=== PATIENT | male | born 1985 | race American Indian/Alaskan Native ===

== ENCOUNTER 2016-11-27 07:00 | Emergency (ER) | payer SELFPAY ==
--- NOTE | 2016-11-27 07:23 | ED PDOC ---
HPI: Eye Injury/Pain Time Seen by Provider: 11/27/16 07:07 Chief Complaint (Provider): Eye pain History Per: Patient History/Exam Limitations: no limitations Onset/Duration Of Symptoms: Days (x2) Current Symptoms Are (Timing): Still Present Additional Complaint(s): Nemesio Horton is a 31 year old female presenting to the ED for an evaluation of bilateral periorbital swelling occurring for 2 days prior to arrival associated with itching and discharge. She denies fever, blurry vision, shortness of breath , or other rashes. PMD: Past Medical History Reviewed: Historical Data, Nursing Documentation, Vital Signs - Medical History PMH: No Chronic Diseases - Family History Family History: States: Unknown Family Hx - Home Medications Home Medications: Ambulatory Orders Medication Instructions Recorded Cetirizine HCl [Zyrtec] 10 mg PO DAILY #10 capsule 11/27/16 Tobramycin 0.3% [Tobramycin 5 Ml] 1 drop OP TID #1 bottle 11/27/16 - Allergies Allergies/Adverse Reactions: Allergies Allergy/AdvReac Type Severity Reaction Status Date / Time No Known Allergies Allergy Verified 11/27/16 07:23 Review of Systems ROS Statement: Except As Marked, All Systems Reviewed And Found Negative Constitutional: Negative for: Fever Eyes: Positive for: Eyelid Inflammation (bilateral periorbital swelling with itching and discharge ). Negative for: Other (no blurry vision) Respiratory: Negative for: Shortness of Breath Skin: Negative for: Rash Physical Exam - Reviewed Nursing Documentation Reviewed: Yes Vital Signs Reviewed: Yes - Physical Exam Appears: Positive for: Well, Non-toxic, No Acute Distress Head Exam: Positive for: ATRAUMATIC, NORMAL INSPECTION, NORMOCEPHALIC Skin: Positive for: Normal Color, Warm, Dry. Negative for: Rash Eye Exam: Positive for: Normal appearance, EOMI, PERRL (PERRLA), Periorbital swelling (bilateral), Conjunctival injection ENT: Positive for: Normal ENT Inspection Neck: Positive for: Normal, Painless ROM Cardiovascular/Chest: Positive for: Regular Rate, Rhythm, Chest Non Tender Respiratory: Positive for: Normal Breath Sounds. Negative for: Respiratory Distress Gastrointestinal/Abdominal: Positive for: Normal Exam, Bowel Sounds, Soft Back: Positive for: Normal Inspection Extremity: Positive for: Normal ROM Neurologic/Psych: Positive for: Alert, Oriented Medical Decision Making Medical Decision Making: Time: 07:07 Impression: Bilateral periorbital swelling Plan: * Rocephin 250 mg IM Once * Reevaluation Scribe Attestation: Documented by Jacey Peterson, acting as a scribe for Skip Mera MD. Provider Scribe Attestation: All medical record entries made by the Scribe were at my direction and personally dictated by me. I have reviewed the chart and agree that the record accurately reflects my personal performance of the history, physical exam, medical decision making, and the department course for this patient. I have also personally directed, reviewed, and agree with the discharge instructions and disposition. Disposition - Clinical Impression Clinical Impression: Allergic conjunctivitis - Patient ED Disposition Is Patient to be Admitted: No - Disposition Referrals: [facility] [Outside] Disposition: Routine/Home Disposition Time: 07:27 Condition: FAIR Prescriptions: Cetirizine HCl [Zyrtec] 10 mg PO DAILY #10 capsule Tobramycin 0.3% [Tobramycin 5 Ml] 1 drop OP TID #1 bottle Instructions: General Allergic Reaction (ED), Conjunctivitis (ED)
[2016-11-27] MEDS ORDERED: cefTRIAXone (Rocephin) 250 mg Inj ONE (07:33)
[2016-11-27 07:34] VITALS: BP 123/77; PULSE 91; RESP 18; TEMP 97.8; O2SAT 99
[2016-11-27] MEDS: cefTRIAXone (Rocephin) 250 mg Inj IM ONE (07:34)
== END 2016-11-27 08:21 | disposition home or self-care (01) ==
LOC: SUPCPDRO 07:00 → H.ER 07:00 → EDSEX 07:00 → H.ER 08:21
DX: H10.45 Other chronic allergic conjunctivitis (principal)
CPT/HCPCS: 96372; 99282; J0696

== ENCOUNTER 2016-12-31 19:53 | Emergency (ER) | payer SELFPAY ==
[2016-12-31 20:09] VITALS: BP 144/84; PULSE 98; RESP 18; TEMP 99.1; O2SAT 99
[2016-12-31] MEDS ORDERED: DiphenhydrAMINE 50 mg/ml Inj IVP STA (20:50)
--- NOTE | 2016-12-31 20:50 | ED PDOC ---
HPI: Eye Injury/Pain Chief Complaint (Nursing): Abnormal Skin Integrity Chief Complaint (Provider): Eye problem History Per: Patient Additional Complaint(s): Patient is a 31 yo reported male, no PMH, presents to ED with complaints of redness, dryness, and reported yellow drainage from scalp. Patient states it started after getting hair buzzed 2 days ago. Patient also has redness and swelling around the eyes. Denies any new products used on scalp during haircut. no new foods, lotions detergents or medications. No medications taken thus far. Past Medical History Vital Signs: Last Vital Signs Temp 99.1 F 12/31/16 20:02 Pulse 98 H 12/31/16 20:02 Resp 18 12/31/16 20:02 BP 144/84 12/31/16 20:02 Pulse Ox 99 12/31/16 20:02 - Family History Family History: States: Unknown Family Hx - Home Medications Home Medications: Ambulatory Orders Medication Instructions Recorded Cetirizine HCl [Zyrtec] 10 mg PO DAILY #10 capsule 11/27/16 Tobramycin 0.3% [Tobramycin 5 Ml] 1 drop OP TID #1 bottle 11/27/16 Cephalexin [Keflex] 500 mg PO BID #14 capsule 12/31/16 DiphenhydrAMINE [Benadryl] 50 mg PO Q4 PRN #30 cap 12/31/16 Methylprednisolone [Medrol Dose 4 mg PO DAILY #21 mg 12/31/16 Pack (21 tabs)] Mupirocin 2% Cream [Bactroban 30 applic TOP BID #1 tube 12/31/16 Cream] - Allergies Allergies/Adverse Reactions: Allergies Allergy/AdvReac Type Severity Reaction Status Date / Time No Known Allergies Allergy Verified 11/27/16 07:23 Review of Systems ROS Statement: Except As Marked, All Systems Reviewed And Found Negative Skin: Positive for: Lesions Physical Exam - Reviewed Nursing Documentation Reviewed: Yes Vital Signs Reviewed: Yes - Physical Exam Appears: Positive for: Well, Non-toxic, No Acute Distress Head Exam: Positive for: ATRAUMATIC, NORMAL INSPECTION, NORMOCEPHALIC Skin: Positive for: Warm, Rash (scalp erythematous and oozing serous fluid) Eye Exam: Positive for: EOMI, PERRL, Periorbital swelling (and mild erythema) ENT: Positive for: Normal ENT Inspection Neck: Positive for: Normal, Painless ROM Cardiovascular/Chest: Positive for: Regular Rate, Rhythm Respiratory: Positive for: CNT, Normal Breath Sounds Gastrointestinal/Abdominal: Positive for: Normal Exam, Bowel Sounds, Soft Back: Positive for: Normal Inspection Extremity: Positive for: Normal ROM Neurologic/Psych: Positive for: Alert, Oriented - Laboratory Results Result Diagrams: 12/31/16 21:24 12/31/16 21:24 - ECG O2 Sat by Pulse Oximetry: 99 Medical Decision Making Medical Decision Making: IV access established and diagnostics ordered. Medicated with Benadryl, Solumderol and Keflex Results discussed with Pt whos periorbital edema has noticeably improved. Pt stable for discharge at this time. advised follow up with PMD, or clinic. return to ED with any concerns. Disposition - Clinical Impression Clinical Impression: Allergic reaction, Cellulitis - Patient ED Disposition Is Patient to be Admitted: No - Disposition Disposition: Routine/Home Disposition Time: 23:17 Condition: STABLE Prescriptions: Cephalexin [Keflex] 500 mg PO BID #14 capsule DiphenhydrAMINE [Benadryl] 50 mg PO Q4 PRN #30 cap PRN Reason: Rash Methylprednisolone [Medrol Dose Pack (21 tabs)] 4 mg PO DAILY #21 mg Mupirocin 2% Cream [Bactroban Cream] 30 applic TOP BID #1 tube Instructions: General Allergic Reaction (ED), Cellulitis (ED) Forms: [facility] [facility] (Filipino)
[2016-12-31] MEDS ORDERED: DiphenhydrAMINE 50 mg/ml Inj ONE (21:31)
[2016-12-31 21:37] LABS: BASO % 0.5 % (0.0-2.0); EOS # 0.3 K/uL (0.0-0.7); HEMATOCRIT 34.3 % (35.0-51.0); LYMPH # 1.4 K/uL (1.0-4.3); LYMPH % 20.8 % (20.0-40.0); MEAN CELL VOLUME 93.7 fl (80.0-94.0); MEAN CORPUSCULAR HEMOGLOBIN 30.2 pg (27.0-31.0); MEAN CORPUSCULAR HGB CONC 32.2 g/dL (33.0-37.0); MEAN PLATELET VOLUME 10.4 fl (7.2-11.7); MONO # 0.7 K/uL (0.0-0.8); NEUT # 4.3 K/uL (1.8-7.0); NEUT % 62.7 % (50.0-75.0); RED CELL DISTRIBUTION WIDTH 13.8 % (11.5-14.5); WHITE BLOOD COUNT 6.8 K/uL (4.8-10.8)
[2016-12-31 21:42] LABS: ALB/GLOB RATIO 1.1 (1.0-2.1); ALKALINE PHOSPHATASE 73 U/L (38-126); ALT/SGPT 24 U/L (21-72); AST/SGOT 32 U/L (17-59); BILIRUBIN,TOTAL 0.2 mg/dl (0.2-1.3); BLOOD UREA NITROGEN 10 mg/dl (9-20); CALCIUM 9.5 mg/dL (8.4-10.2); CARBON DIOXIDE 30 mmol/L (22-30); CHLORIDE 102 mmol/L (98-107); GFR AFRICAN-AMERICAN > 60; GLUCOSE,RANDOM 109 mg/dL (75-110); POTASSIUM 4.3 MMOL/L (3.6-5.0); SODIUM 142 mmol/l (132-148); TOTAL PROTEIN 7.1 G/DL (6.3-8.2)
== END 2016-12-31 23:20 | disposition home or self-care (01) ==
LOC: H.ER 19:53
DX: T78.40XA Allergy, unspecified, initial encounter (principal); L03.211 Cellulitis of face
CPT/HCPCS: 80053; 85025; 96374; 96375; 99284; J1200; J2930

== ENCOUNTER 2017-02-21 17:30 | Emergency (ER) | payer SELFPAY ==
[2017-02-21 17:58] VITALS: BP 127/77; PULSE 85; RESP 20; TEMP 98; O2SAT 100
--- NOTE | 2017-02-21 18:18 | ED PDOC ---
HPI: General Adult Time Seen by Provider: 02/21/17 18:04 Chief Complaint (Nursing): Flu-like Symptoms Chief Complaint (Provider): body aches History Per: Patient History/Exam Limitations: no limitations Onset/Duration Of Symptoms: Days (x2) Current Symptoms Are (Timing): Still Present Additional Complaint(s): Nemesio Horton is a 31-year-old male who presents to the emergency department complaining of a subjective fever and body aches since last night. He reports that he has been busy lately and feels tired. Patient denies any associated cough, congestion, abdominal pain, nausea, or vomiting. He states his appetite has been normal. Upon arrival to the ER, patient is afebrile. Patient is also requesting clinic contact information for follow up. PMD: none Past Medical History Reviewed: Historical Data, Nursing Documentation, Vital Signs Vital Signs: Last Vital Signs Temp 98 F 02/21/17 17:57 Pulse 85 02/21/17 17:57 Resp 20 02/21/17 17:57 BP 127/77 02/21/17 17:57 Pulse Ox 100 02/21/17 18:22 - Medical History PMH: No Chronic Diseases - Family History Family History: States: No Known Family Hx - Social History Current smoker - smoking cessation education provided: Yes Alcohol: None Drugs: Denies - Home Medications Home Medications: Ambulatory Orders Medication Instructions Recorded Cetirizine HCl [Zyrtec] 10 mg PO DAILY #10 capsule 11/27/16 Tobramycin 0.3% [Tobramycin 5 Ml] 1 drop OP TID #1 bottle 11/27/16 Cephalexin [Keflex] 500 mg PO BID #14 capsule 12/31/16 DiphenhydrAMINE [Benadryl] 50 mg PO Q4 PRN #30 cap 12/31/16 Methylprednisolone [Medrol Dose 4 mg PO DAILY #21 mg 12/31/16 Pack (21 tabs)] Mupirocin 2% Cream [Bactroban 30 applic TOP BID #1 tube 12/31/16 Cream] Naproxen [Naprosyn] 500 mg PO Q12H #20 tab 01/26/17 Sulfamethoxazole/Trimethoprim 1 tab PO BID #20 tab 01/26/17 [Bactrim DS 800 mg-160 mg] - Allergies Allergies/Adverse Reactions: Allergies Allergy/AdvReac Type Severity Reaction Status Date / Time No Known Allergies Allergy Verified 01/26/17 07:08 Review of Systems ROS Statement: Except As Marked, All Systems Reviewed And Found Negative Constitutional: Negative for: Fever, Chills ENT: Negative for: Nose Congestion Respiratory: Negative for: Cough Gastrointestinal: Negative for: Nausea, Vomiting Genitourinary Male: Negative for: Dysuria, Frequency, Incontinence, Hematuria Musculoskeletal: Positive for: Other (Body aches) Skin: Negative for: Rash Neurological: Negative for: Weakness, Numbness, Altered Mental Status, Headache , Dizziness Physical Exam - Reviewed Nursing Documentation Reviewed: Yes Vital Signs Reviewed: Yes - Physical Exam Appears: Positive for: Well, Non-toxic, No Acute Distress Head Exam: Positive for: ATRAUMATIC, NORMAL INSPECTION, NORMOCEPHALIC Skin: Positive for: Normal Color. Negative for: Rash Eye Exam: Positive for: Normal appearance Neck: Positive for: Normal, Painless ROM Cardiovascular/Chest: Positive for: Regular Rate, Rhythm Respiratory: Positive for: Normal Breath Sounds (Lungs clear to auscultation). Negative for: Rhonchi, Wheezing, Respiratory Distress Gastrointestinal/Abdominal: Positive for: Soft. Negative for: Tenderness, Distended, Guarding Back: Positive for: Normal Inspection Extremity: Positive for: Normal ROM. Negative for: Tenderness, Pedal Edema, Deformity Neurologic/Psych: Positive for: Alert, Oriented. Negative for: Motor/Sensory Deficits - ECG O2 Sat by Pulse Oximetry: 100 (RA) Pulse Ox Interpretation: Normal Medical Decision Making Medical Decision Making: Time: 18:15 Initial Impression: 31 year old male with body aches. Patient is afebrile upon arrival, well appearing, non-toxic appearing. Initial Plan: --Given Tylenol 975 mg PO Patient states he feels better after tylenol dose given. Patient is medically stable for discharge. Advised patient to continue taking Tylenol at home, and drink lots of fluids and rest. Instructed patient to follow up with the clinic. There is agreement to discharge plan. Return if symptoms persist or worsen. Scribe Attestation: Documented by Scarlett Lancaster, acting as a scribe for Keri Aparicio PA-C Provider Scribe Attestation: All medical record entries made by the Scribe were at my direction and personally dictated by me. I have reviewed the chart and agree that the record accurately reflects my personal performance of the history, physical exam, medical decision making, and the department course for this patient. I have also personally directed, reviewed, and agree with the discharge instructions and disposition. Disposition - Clinical Impression Clinical Impression: Body aches - Patient ED Disposition Is Patient to be Admitted: No Counseled Patient/Family Regarding: Diagnosis, Need For Followup - Disposition Referrals: [facility] [Outside] Disposition: Routine/Home Disposition Time: 18:16 Condition: STABLE Additional Instructions: Take over the counter tylenol or advil for pain as needed. Drink plenty of fluids and rest. Follow up with clinic for any persistent symptoms. Instructions: Arthralgia (ED) Forms: [employer] (Faroese)
== END 2017-02-21 18:40 | disposition home or self-care (01) ==
LOC: H.ER 17:30
DX: M79.1 Myalgia (principal)